=== PATIENT | male | born 1965 | race Caucasian/White ===

== ENCOUNTER 2017-10-09 15:17 | Inpatient (IN) | payer SELFPAY ==
[2017-10-09] MEDS ORDERED: Ondansetron HCl/PF 4 MG/2 ML Vial ONE (15:28)
[2017-10-09] MEDS ORDERED: Lorazepam 2 MG/ML VIAL ONE (15:51)
[2017-10-09] MEDS ORDERED: Morphine 4 MG/ML VIAL ONE (15:51)
[2017-10-09] MEDS ORDERED: Pantoprazole 40 MG VIAL ONE (15:52)
[2017-10-09 16:59] LABS: ALT (SGPT) 19 U/L (8-55); AST (SGOT) 26 U/L (5-34); Alkaline Phosphatase 85 U/L (40-150); Anion Gap 22 mmol/L (10-20); BUN (Urea Nitrogen) 12 mg/dL (8.4-25.7); Bilirubin, Total 1.1 mg/dL (0.2-1.2); Calc. Creatinine Clearance 0 mL/min (70-130); Calcium 9.4 mg/dL (7.8-10.44); Carbon Dioxide 21 mmol/L (22-29); Chloride 99 mmol/L (98-107); Estimated GFR-MDRD 86; Globulin 3.2 g/dL (2.4-3.5); Protein, Total 7.6 g/dL (6.0-8.3)
[2017-10-09 17:25] LABS: #Lymphocytes 0.8 thou/uL (1.20-3.40); #Monocytes 0.9 thou/uL (0.11-0.59); #Neutrophils 12.4 thou/uL (1.40-6.50); %Basophils 0.2 % (0.0-1.0); %Eosinophils 0.1 % (0.0-10.0); %Lymphocytes 5.5 % (21.0-51.0); Hematocrit 47.8 % (42.0-52.0); Mean Platelet Volume 6.8 fL (7.4-10.4); Red Blood Cell (RBC) Count 5.21 mill/uL (4.70-6.10); White Blood Cell (WBC) Count 14.1 thou/uL (4.8-10.8)
[2017-10-09 17:32] LABS: Prothrombin Time 14.2 SEC (12.0-14.7)
[2017-10-09 17:34] LABS: PTT 19.2 SEC (22.9-36.1)
[2017-10-09] MEDS ORDERED: Ondansetron HCl/PF 4 MG/2 ML Vial IVP PRN (17:36)
[2017-10-09] MEDS ORDERED: Acetaminophen 650 MG Suppository PR PRN (17:36)
[2017-10-09] MEDS ORDERED: Promethazine HCl 25 MG/ML VIAL IM/IV PRN (17:36)
[2017-10-09] MEDS ORDERED: Sodium Chloride 0.9% 1,000 ML IV SCH (17:45)
[2017-10-09] MEDS ORDERED: ISOVUE-370 76%-LOCM 1 ML ONE (17:47)
[2017-10-09] MEDS ORDERED: Iopamidol 370 76% 50 ML VIAL FS ONE (17:47)
[2017-10-09 18:15] LABS: Bilirubin Negative (Negative); Blood, Urine Negative (Negative); Glucose, Urine (Dipstick) Negative (Negative); Ketone, Urine 40 mg/dL (Negative); Nitrite Negative (Negative); Protein, Urine (Dipstick) 30 mg/dL (Neg-Trace); Urobilinogen 0.2 mg/dL (0.2-1.0)
--- NOTE | 2017-10-09 18:17 | RAD ---
RADIOGRAPH RIGHT SHOULDER THREE VIEWS: History: 52-year-old male with right shoulder pain. FINDINGS: The glenohumeral joint appears normal. No evidence of fracture. Mild to moderate DJD at AC joint. On one of the two frontal views, the distal tip of the clavicle is subluxed a half-bone width superiorly relative to the acromion. This appears to reduce on the other view. There is no significant widening of the AC joint space. IMPRESSION: 1. No fracture. 2. Grade II acromioclavicular joint sprain, of unknown age. POS: [facility]
[2017-10-09 18:18] LABS: Bacteria/HPF None Seen HPF (None Seen); Hyaline Casts/LPF 0-3 HYALINE CAST LPF (0-3 Hyaline); RBC/HPF 0-3 HPF (0-3); Squamous Epithelial None Seen HPF (0-3); WBC/HPF None Seen HPF (0-3)
[2017-10-09 18:24] LABS: Amphetamine Not Detected (NotDetected); Methadone Not Detected (NotDetected); Methamphetamine Not Detected (NotDetected)
--- NOTE | 2017-10-09 18:24 | CT ---
CT ABDOMEN WITH CONTRAST CT PELVIS WITH CONTRAST: DATE: 10-09-17 HISTORY: 52-year-old male with nausea, hematemesis, generalized abdominal pain. COMPARISON: None. TECHNIQUE: IV injection of iodinated contrast media: 100 ml Isovue 370 Oral contrast media: No administered FINDINGS: The patient refused to be scanned supine. The patient was scanned in left lateral decubitus position. The appendix, abdominal aorta, left kidney, adrenals, liver, pancreas, spleen, and urinary bladder a re normal. No small bowel dilatation. No acute colonic diverticulitis. No ascites or pneumoperitoneum . No pleural effusion. 2.5 cm right renal upper pole parenchymal cyst. No other renal abnormality. Th ere is an appearance of intramural gas at the gastric cardia. There circumferential mural thickening and edema of the distal esophagus. IMPRESSION: 1. There is apparently intramural gas in the proximal stomach. This may represent extension of Mallor y-Cortes tears. Consider possibility of increased risk for Boerhaave syndrome. 2. Esophagitis. LUIS ALFREDO Ogden POS: [facility]
[2017-10-09] MEDS ORDERED: Morphine 4 MG/ML VIAL SLOW IVP PRN (19:24)
[2017-10-09] MEDS ORDERED: Promethazine HCl 25 MG/ML VIAL IM PRN (19:59)
[2017-10-09] MEDS ORDERED: Morphine 2 MG/ML SYRINGE SLOW IVP PRN (20:02)
[2017-10-09] MEDS: Ondansetron HCl/PF 4 MG/2 ML Vial IVP SCH (20:23)
[2017-10-09] MEDS: Lactated Ringer's 1,000 ML IV SCH (20:24)
[2017-10-09] MEDS ORDERED: Ondansetron HCl/PF 4 MG/2 ML Vial IVP SCH (21:00)
[2017-10-09] MEDS: Pantoprazole 80 MG in Sodium Chloride 0.9% 100 ML IVPB SCH (21:16)
[2017-10-09] MEDS: Metoclopramide HCl 10 MG/2 ML VIAL IVP SCH (21:25)
--- NOTE | 2017-10-09 21:25 | CT ---
CT THORAX NONCONTRAST: DATE: 10-09-17 TIME: 7:38 p.m. HISTORY: 52-year-old male with chest pain due to nausea, emesis, and hematemesis. COMPARISON: None. FINDINGS: Images are somewhat degraded because of patient breathing motion. There is fluid mildly distended the lumen of the distal and mid esophagus. There is diffuse, circumferential mild mural thickening of th e esophagus. No organized fluid collection is identified in the mediastinum. There is no pneumomedias tinum, pneumothorax, airspace opacity of pulmonary edema. There is no pleural effusion. No cardiomega ly or pericardial effusion. No thoracic aortic aneurysm. No mediastinum lymphadenopathy. IMPRESSION: 1. Fluid mildly distending the lumen of the esophagus could either represent gastroesophageal reflux or vomiting, during the time of this scan. 2. Because of motion artifact, it is difficult to evaluate for periesophageal fat stranding/edema, bu t there is no organized mediastinal fluid collection or pneumomediastinum. 3. Mural thickening of the esophagus is evidence for esophagitis. LUIS ALFRDEO Ogden POS: [facility]
--- NOTE | 2017-10-09 21:39 | HP ---
REASON FOR ADMISSION: Intractable nausea and vomiting with likely Ivana- Cortes tear, hematemesis. HISTORY OF PRESENT ILLNESS: The patient gives history of drinking 6-7 beers yesterday evening. He states he was at a libertarian. He has been throwing up from yesterday. The last few times he threw up this afternoon, there was blood in it. He is not able to quantify the exact amount. He has been having severe abdominal pain, which is generalized. He is not able to lay down supine. He is in a lateral position and curled up here on the ER rlackey. No complaints of chest pain or palpitation. No complaints of shortness of breath. He has not had any prior peptic ulcers, but has history of GERD. The patient states he does not drink on a regular basis. He denies any substance abuse. PAST MEDICAL/SURGICAL HISTORY: GERD, right arm surgery. CURRENT MEDICATIONS: None. PERSONAL HISTORY: Does not abuse alcohol on a regular basis or drugs. No history of smoking. FAMILY HISTORY: His biological father of [place] at the age of 47 years. His mom is apparently healthy as far as he knows. REVIEW OF SYSTEMS: The following complete review of systems was negative, unless otherwise mentioned in the HPI or below: Constitutional: Weight loss or gain, ability to conduct usual activities. Skin: Rash, itching. Eyes: Double vision, pain. ENT/Mouth: Nose bleeding, neck stiffness, pain, tenderness. Cardiovascular: Palpitations, dyspnea on exertion, orthopnea. Respiratory: Shortness of breath, wheezing, cough, hemoptysis, fever or night sweats. Gastrointestinal: Poor appetite, abdominal pain, heartburn, nausea, vomiting, constipation, or diarrhea. Genitourinary: Urgency, frequency, dysuria, nocturia. Musculoskeletal: Pain, swelling. Neurologic/Psychiatric: Anxiety, depression. Allergy/Immunologic: Skin rash, bleeding tendency. PHYSICAL EXAMINATION: GENERAL: The patient is a 52-year-old male who is currently in moderate-to- severe distress from abdominal pain. VITAL SIGNS: Blood pressure 136/84, pulse 100 per minute, respiratory rate 20 per minute, temperature 97.8 degrees Fahrenheit, saturating 100% on room air. NECK: Supple. No elevated JVD. HEENT: Eyes, extraocular muscles intact. Pupils reacting to light. Oral cavity mucous membranes are dry. No exudates or congestion. CARDIOVASCULAR: S1, S2 heard, tachycardic. RESPIRATORY: Air entry 1+ bilateral. No rales or rhonchi. ABDOMEN: Soft. Patient has voluntary guarding of his belly. No rigidity. Bowel sounds are heard. EXTREMITIES: No peripheral edema or calf tenderness. VASCULAR: Peripheral pulses 1+ bilateral. No ischemic ulcerations or gangrene. CENTRAL NERVOUS SYSTEM: No gross focal deficits seen. Patient is lethargic, but responds to questions and is moving all 4 extremities. PSYCHIATRIC: The patient is a bit anxious at present. Otherwise, no hallucinations or delusions. LABORATORY AND X-RAY FINDINGS: CT abdomen and pelvis with contrast done showed intramural gas in the proximal stomach. This may represent extension of Ivana -Cortes tears. There is a possible risk of Boerhaave syndrome, esophagitis is seen, right shoulder 3 view x-ray done showed no fracture. Urine drug screen is positive for opiates. UA shows ketones. BUN 12, creatinine 0.9. Serum bicarbonate is 21. Otherwise, electrolytes within normal limits. Liver function tests are within normal limits. Albumin is 4. PT, INR, PTT within normal limits. White count of 14, H and H was 16 and 47, platelet count 274, MCV is 91 with 88% neutrophils. EKG done shows normal sinus rhythm at 90 beats per minute. CLINICAL IMPRESSION AND PLAN: Patient will be admitted to IMCU for intractable nausea and vomiting with Ivana-Cortes tears. This is for close monitoring to control his vomiting, so as to make sure he does not tear the entire stomach wall. He will be on Protonix drip along with Phenergan 25 mg IV q.6 hourly along with Zofran p.r.n., normal saline at 100 mL per hour. I have spoken to Dr. Gordon for Gastroenterology, and Dr. Nettles for General Surgery. We will closely monitor him in ICU. The plan is to stop his nausea, vomiting first. He is at high risk for perforation. PAUL
[2017-10-09 21:54] VITALS: BMI 26.9
[2017-10-09] MEDS: Ketorolac Tromethamine 30 MG/ML VIAL IVP SCH (23:27)
[2017-10-09] MEDS: Promethazine HCl 25 MG/ML VIAL IM/IV SCH (23:29)
[2017-10-09] MEDS: Acetaminophen 1,000 MG in Premix Bag 1 BAG IVPB SCH (23:33)
[2017-10-09] MEDS: Piperacillin/Tazobactam 4.5 GM in Sodium Chloride 0.9% 100 ML IVPB SCH (23:55)
[2017-10-09] MEDS ORDERED: Piperacillin/Tazobactam 4.5 GM in Sodium Chloride 0.9% 100 ML IVPB SCH (23:59)
[2017-10-10] MEDS: Ondansetron HCl/PF 4 MG/2 ML Vial IVP SCH ×3 (01:20→08:43)
--- NOTE | 2017-10-10 01:25 | CON ---
DATE OF CONSULTATION: 10/09/2017 REASON FOR CONSULTATION: "Ivana-Cortes tear." HISTORY OF PRESENT ILLNESS: Mr. Dominique is a 52-year-old gentleman who came to the emergency room to day for epigastric pain after quite a bit of vomiting. Apparently, he went to a republican last night for holidays and started throwing up after having a few beers last night and the vomiting would not stop . He has not had this problem before, although he has had significant reflux in the past. He estima chani he vomited 20-30 times through the night. Today, he had a little bit of emesis that was red and coffee ground, there were no overt clots. Ultimately, he called his sister who called EMS and he was brought here to the emergency room. Here, he has been afebrile. He had acute epigastric left upper quadrant pain. He had an O2 sat of 96%, blood pressure 155/101, pulse of 100, respirations 20. He has had no vomiting here, although he complains of significant epigastric pain and then was sent for CAT scan there. Apparently, he would not lie flat on the table and would only lie on his left side. His labs showed a white count of 14,000 at 1710 hours, hemoglobin was 16.4, platelet count 274. Com prehensive metabolic profile was normal. Urinalysis was notable for 40 ketones. Tox screen was posi tive for opiates, but he received morphine here. All other drug screen was negative and alcohol leve l was not obtained. The patient also complains of right shoulder pain. He states he is not nauseate d now. He denies any headache or visual changes. He does not recall falling or hitting his shoulder . When asked about abdominal pain whether it is like sore muscles from doing sit-ups or deeper insid e, he states it is deeper inside. PAST MEDICAL HISTORY: Reflux. PAST SURGICAL HISTORY: Right arm surgery. He has a tattoo on the right shoulder. ALLERGIES: None known. HOME MEDICATIONS: He states he takes Zantac 75 for reflux. FAMILY HISTORY: Noncontributory. PHYSICAL EXAMINATION: VITAL SIGNS: As above. GENERAL: The patient is in distress, lying on his left side, holds his upper abdomen, although he wi ll talk to me and give me history. He has an emesis bag at the bedside, but there is nothing in exce pt for dry spit. HEENT: Conjunctiva and sclerae are clear. Oropharynx is without lesions. NECK: Supple without adenopathy. There is no crepitus in the neck or upper chest. LUNGS: Clear. HEART: Regular rate and rhythm. ABDOMEN: Soft. There is some voluntary guarding in the upper abdomen. There is no rebound. There is no palpable hepatosplenomegaly. Bowel sounds are positive. EXTREMITIES: Reveal no clubbing, cyanosis, or edema. He has pain in his right shoulder, tenderness at the AC joint. He cannot abduct the arm completely above 90 degrees. LABORATORY STUDIES AND X-RAY FINDINGS: As above. Right shoulder film showed no fracture but a grade II AC joint sprain. CAT scan reviewed by me when I was called on the floor about this consultation, before it was read and it shows some distal esophageal thickening consistent with esophagitis, no fr ee air in the chest cavity, but definitely, air in the gastric wall along the lesser curve. There is no overt evidence of free perforation, but there is no contrast in this area, maybe some blood in th e gastric lumen. There is one picture on the coronals that raise concern for possible rupture of the proximal stomach, but again, no free air or fluid or inflammation seen outside the gastric lumen. ASSESSMENT: I agree with possible Boerhaave syndrome. There is no obvious evidence of free air, alt lori there is quite a bit of intramucosal area in the proximal stomach along the lesser curve and al so at the gastroesophageal junction region. There are no signs of hematemesis at this time. There is no anemia or signs of active gastrointestin al bleeding. RECOMMENDATIONS: With the degree of pain he has and leukocytosis, he was started on broad-spectrum a ntibiotics. He has had his nausea controlled with scheduled Phenergan and Zofran and he has a surgic al consultation and possibly even a Thoracic Surgery consultation. He needs to be in the ICU or IMU. I would also recommend IV Protonix drip. These issues were conveyed to the hospitalist and General Surgery but via phone call.
--- NOTE | 2017-10-10 02:06 | CON ---
DATE OF CONSULTATION: 10/09/2017 HISTORY OF PRESENT ILLNESS: I was called by Dr. Gordon to evaluate Mr. Dominique, who is a 52-year-old gentleman admitted with abdominal pain after binge drinking. He has had nausea and multiple episode s of vomiting and retching. He had a CT scan of his abdomen performed, which showed small amount of submucosal air in the cardia and greater curvature of the stomach and GE junction. CT of his chest s hows an edematous distal esophagus with no free fluid and no free air in either the mediastinum or in the left pleural cavity. He has been admitted. He is being hydrated and has been started on Zosyn. He has not been able to tolerate any oral contrast, so we do not really have a good swallow study o ther than the CT scan. Currently, he is asleep, resting comfortably. He has not been tachycardic. He is currently unwilling to be interviewed for another time by me, as he has been interviewed by [facility] physicians up to this point. PAST MEDICAL HISTORY: None. PAST SURGICAL HISTORY: None. CURRENT MEDICATIONS: Noted. ALLERGIES: None. SOCIAL HISTORY: He drinks occasionally, but had a binge drinking episode at a [employer] last n ight leading to his vomiting. He does not use tobacco. REVIEW OF SYSTEMS: Not performed, but is negative in the ER physician's note. PHYSICAL EXAMINATION: CHEST: Clear bilaterally. HEART: Rhythm is regular with the rate in the 80s. Blood pressure is 128/72. ABDOMEN: Soft. Minimally tender in the epigastrium. He has no rebound, guarding, or other peritone al signs. LABORATORY DATA: Of note, his white blood cell count is 14.1, hemoglobin is 16.4, platelet count is 274,000. Potassium is 4.7, creatinine is 0.92. ASSESSMENT AND PLAN: Probably Larrbyv-Tosoz-jbmf situation with a submucosal tear at the GE junction due to retching. There is no free fluid in either the abdomen or chest. There is submucosal edema and air in the distal esophagus and cardia of the stomach. I have recommended that he remain n.p.o., have no NG tubes passed. He has been started on Zosyn and is being hydrated. We will re-scan niranjanelda rameshly with oral contrast in 48 hours.
[2017-10-10] MEDS: Lactated Ringer's 1,000 ML IV SCH ×3 (02:12→15:00)
[2017-10-10 04:31] LABS: #Eosinphils 0.1 thou/uL (0.0-0.7); #Lymphocytes 2.1 thou/uL (1.20-3.40); #Monocytes 1.1 thou/uL (0.11-0.59); #Neutrophils 8.2 thou/uL (1.40-6.50); %Basophils 0.1 % (0.0-1.0); %Eosinophils 1.1 % (0.0-10.0); %Lymphocytes 18.3 % (21.0-51.0); %Monocytes 9.4 % (0.0-10.0); Hematocrit 44.1 % (42.0-52.0); Mean Platelet Volume 6.9 fL (7.4-10.4); Red Blood Cell (RBC) Count 4.78 mill/uL (4.70-6.10); White Blood Cell (WBC) Count 11.5 thou/uL (4.8-10.8)
[2017-10-10 04:46] LABS: ALT (SGPT) 15 U/L (8-55); AST (SGOT) 21 U/L (5-34); Alkaline Phosphatase 68 U/L (40-150); Anion Gap 12 mmol/L (10-20); BUN (Urea Nitrogen) 16 mg/dL (8.4-25.7); Bilirubin, Total 1.5 mg/dL (0.2-1.2); Calc. Creatinine Clearance 103 mL/min (70-130); Calcium 8.6 mg/dL (7.8-10.44); Carbon Dioxide 24 mmol/L (22-29); Chloride 103 mmol/L (98-107); Estimated GFR-MDRD 79; Globulin 2.5 g/dL (2.4-3.5); Protein, Total 6.1 g/dL (6.0-8.3)
--- NOTE | 2017-10-10 06:01 | CON ---
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 He does not drink that often. he began experiencing retchin g intractably and presents to the emergency room today and evaluated appreciated to have a white coun t of 14,000, hemoglobin of 16. Sodium 137, potassium 4.1, BUN 12, creatinine 0.92. CAT scan of the abdomen and pelvis obtained on 04:02 p.m. reveals intramural gas in the proximal stomach consistent w ith probable Ivana-Cortes tears, but there was no extraluminal fluid or inflammatory changes. There was some thickening of the lower esophagus, but no extraluminal fluid. Chest CAT scan subsequently ordered by Dr. Gordon does not reveal any acute findings per my read, but I am waiting the final radi ology read. ALLERGIES: None. TOBACCO: None. ALCOHOL: Rarely. MEDICATIONS: None routinely. PAST SURGICAL HISTORY: Arm surgery. PAST MEDICAL HISTORY: Noncontributory. REVIEW OF SYSTEMS: Ten-point noncontributory. SOCIAL HISTORY: Patient is single. He is . PHYSICAL EXAMINATION: VITAL SIGNS: BP 144/72, respiratory rate 20, heart rate 86. GENERAL: Patient prefers lying in the left lateral decubitus position. He is uncomfortable, complai debi of epigastric pain. LUNGS: Clear to auscultation. CARDIAC: Regular rate and rhythm without murmur or gallop. ABDOMEN: Nondistended, soft lower abdomen with a few bowel sounds more tender in upper abdomen with guarding. EXTREMITIES: Unremarkable. LABORATORY DATA: As noted above. Basic metabolic profile and CMP essentially normal. White count 1 4, hemoglobin 16. Coagulation studies negative. Toxicology negative. ASSESSMENT AND PLAN: Intractable retching and dehydration. He has been hydrated. Would agree with current plans for hospitalization observation in the immediate care unit, n.p.o., and aggressive cont rol of any nausea to prevent further retching and further injury on intravenous antibiotics and PPIs. We will follow him in clinic. Repeat blood counts tomorrow. Obtain a chest x-ray tomorrow, uprigh t, portable and observe him closely n.p.o.
[2017-10-10] MEDS: Acetaminophen 1,000 MG in Premix Bag 1 BAG IVPB SCH (06:03)
[2017-10-10] MEDS: Ketorolac Tromethamine 30 MG/ML VIAL IVP SCH ×3 (06:05→17:17)
[2017-10-10] MEDS: Metoclopramide HCl 10 MG/2 ML VIAL IVP SCH (06:07)
[2017-10-10] MEDS: Promethazine HCl 25 MG/ML VIAL IM/IV SCH (06:08)
[2017-10-10] MEDS: Pantoprazole 80 MG in Sodium Chloride 0.9% 100 ML IVPB SCH ×2 (06:50→17:23)
--- NOTE | 2017-10-10 07:39 | RAD ---
CHEST 1 VIEW: HISTORY: Followup epigastric pain. COMPARISON: None. FINDINGS: Portable upright 1 view chest demonstrates a normal cardiac silhouette. The pulmonary vessels and hi lum are normal. Costophrenic angles are clear. No mass. No consolidation. No pneumothorax or osse ous abnormalities. IMPRESSION: No acute cardiopulmonary process. POS: [facility]
[2017-10-10] MEDS: Piperacillin/Tazobactam 4.5 GM in Sodium Chloride 0.9% 100 ML IVPB SCH ×2 (08:41→17:20)
[2017-10-10] MEDS ORDERED: Ondansetron HCl/PF 4 MG/2 ML Vial IVP PRN (10:30)
[2017-10-10] MEDS ORDERED: Acetaminophen 1,000 MG in Premix Bag 1 BAG IVPB PRN (11:21)
--- NOTE | 2017-10-10 12:10 | PRG ---
DATE OF SERVICE: 10/10/2017 SUBJECTIVE: Mr. Dominique is doing well in immediate care. Temperature 98.1 degrees, pulse 77, respir atory rate 19, blood pressure 110/60. His pain in abdomen has resolved. He feels much better. He i s no longer having nausea. LABORATORY DATA: White count 11.5, hemoglobin 14. Basic metabolic profile normal. Bilirubin slight ly elevated at 1.5. Chest x-ray this morning is unremarkable. OBJECTIVE: LUNGS: Clear to auscultation. CARDIAC: Regular rate and rhythm without murmur or gallop. ABDOMEN: Soft and nontender. ASSESSMENT AND PLAN: Ivana-Cortes tear from binge alcohol; nausea; abdominal pain, resolved. White count normalizing. Chest x-ray normal. We would plan to keep n.p.o. today and keep hydrated. We w ould decrease IV fluids to 100 per hour. We would mobilize him up in a chair and ambulating today. Continue his Protonix and antibiotics. Change his Zofran to p.r.n. Anticipate contrast swallow stud y tomorrow to evaluate esophagus and stomach and then begin liquids tomorrow if he continues present course.
--- NOTE | 2017-10-10 13:09 | PDOC.PN ---
- Subjective Encounter Start Date: 10/10/17 Encounter Start Time: 12:00 Subjective: no abd pain this morning -: no nausea or vomiting now -: feels better - Objective MAR Reviewed: Yes Vital Signs & Weight: Vital Signs (12 hours) Temp Pulse Resp BP Pulse Ox 10/10/17 11:28 98.1 F 78 20 98/61 100 10/10/17 07:57 98.1 F 77 19 99 10/10/17 07:00 98.1 F 77 19 110/60 99 10/10/17 06:10 69 18 101/64 99 10/10/17 04:09 97.9 F 75 16 119/76 99 10/10/17 02:11 87 20 121/75 99 Weight Weight 183 lb 7 oz I&O: 10/09/17 10/10/17 10/11/17 06:59 06:59 06:59 Intake Total 2050 Output Total 800 Balance 1250 Result Diagrams: 10/10/17 03:57 10/10/17 03:57 Phys Exam - Physical Examination HEENT: PERRLA, moist MMs Neck: no JVD, supple Respiratory: no wheezing, no rales rhonchi+ Cardiovascular: RRR, no significant murmur Gastrointestinal: soft, non-tender, no distention, positive bowel sounds Musculoskeletal: no edema, pulses present Neurological: non-focal, moves all 4 limbs Psychiatric: A&O x 3 Dx/Plan (1) Intractable nausea and vomiting Code(s): R11.2 - NAUSEA WITH VOMITING, UNSPECIFIED Status: Acute Comment: resolving (2) Ivana-Cortes tear Code(s): K22.6 - GASTRO-ESOPHAGEAL LACERATION-HEMORRHAGE SYNDROME Status: Acute (3) Abdominal pain Code(s): R10.9 - UNSPECIFIED ABDOMINAL PAIN Status: Resolved Qualifiers: Abdominal location: generalized Qualified Code(s): R10.84 - Generalized abdominal pain - Plan is npo -: on protonix drip -: nausea has resolved now -: phenergan prn -: empiric zosyn, for ba swallow/gastrograffin in am if stable * . Review of Systems - Medications/Allergies Allergies/Adverse Reactions: Allergies Allergy/AdvReac Type Severity Reaction Status Date / Time No Known Allergies Allergy Verified 10/09/17 22:06 Medications: Current Medications Pantoprazole Sodium 80 mg/ (Sodium Chloride) 100 mls @ 10 mls/hr IVPB INF COUNT INCLUDES THE [facility] Last Admin: 10/10/17 06:50 Dose: 100 mls Lactated Ringer's (Lactated Ringer's) 1,000 mls @ 100 mls/hr IV .Q10H COUNT INCLUDES THE [facility] Last Admin: 10/10/17 06:09 Dose: 1,000 mls Piperacillin Sod/Tazobactam (Sod 4.5 gm/ Sodium Chloride) 100 mls @ 200 mls/hr IVPB 0800,1600,2359 COUNT INCLUDES THE [facility] Last Admin: 10/10/17 08:41 Dose: 100 mls Acetaminophen 1,000 mg/ Device 100 mls @ 400 mls/hr IVPB Q6H PRN PRN Reason: Fever/Mild Pain Stop: 10/11/17 11:22 Ketorolac Tromethamine (Toradol) 30 mg IVP Q6HR COUNT INCLUDES THE [facility] Stop: 10/14/17 23:59 Last Admin: 10/10/17 12:20 Dose: 30 mg Morphine Sulfate (Morphine) 2 mg SLOW IVP Q2H PRN PRN Reason: Chest Pain/BP Elevations Last Admin: 10/09/17 20:27 Dose: 2 mg Ondansetron HCl (Zofran) 4 mg IVP Q4H PRN PRN Reason: Nausea/Vomiting Promethazine HCl (Phenergan) 25 mg IM Q4H PRN PRN Reason: Nausea/Vomiting Sodium Chloride (Flush - Normal Saline) 10 ml IVF Q12HR COUNT INCLUDES THE [facility] Last Admin: 10/10/17 08:44 Dose: 10 ml Sodium Chloride (Flush - Normal Saline) 10 ml IVF PRN PRN PRN Reason: Saline Flush
[2017-10-11] MEDS: Ketorolac Tromethamine 30 MG/ML VIAL IVP SCH ×3 (00:09→12:39)
[2017-10-11] MEDS: Piperacillin/Tazobactam 4.5 GM in Sodium Chloride 0.9% 100 ML IVPB SCH ×2 (00:11→08:37)
[2017-10-11] MEDS: Pantoprazole 80 MG in Sodium Chloride 0.9% 100 ML IVPB SCH (04:20)
[2017-10-11] MEDS: Lactated Ringer's 1,000 ML IV SCH (04:21)
[2017-10-11 04:43] LABS: #Eosinphils 0.4 thou/uL (0.0-0.7); #Lymphocytes 1.5 thou/uL (1.20-3.40); #Monocytes 0.5 thou/uL (0.11-0.59); #Neutrophils 4.8 thou/uL (1.40-6.50); %Basophils 0.1 % (0.0-1.0); %Lymphocytes 21.3 % (21.0-51.0); Hematocrit 40.5 % (42.0-52.0); Mean Platelet Volume 7.2 fL (7.4-10.4); Red Blood Cell (RBC) Count 4.32 mill/uL (4.70-6.10); White Blood Cell (WBC) Count 7.2 thou/uL (4.8-10.8)
[2017-10-11 04:51] LABS: Anion Gap 10 mmol/L (10-20); BUN (Urea Nitrogen) 18 mg/dL (8.4-25.7); Calc. Creatinine Clearance 90 mL/min (70-130); Calcium 8.2 mg/dL (7.8-10.44); Carbon Dioxide 26 mmol/L (22-29); Chloride 107 mmol/L (98-107); Estimated GFR-MDRD 68
--- NOTE | 2017-10-11 09:01 | PRG ---
DATE OF SERVICE: 10/10/2017 Mr. Dominique is feeling better. His pain has resolved. He has no nausea or vomiting. He remains in the IMU. PHYSICAL EXAMINATION: VITAL SIGNS: Temperature is 98, pulse 68, blood pressure 100/59. ABDOMEN: Soft and nontender with no rebound or guarding. LABORATORY STUDIES: White count 11.5, hemoglobin 14, platelet count 241. Sodium 135, potassium 4, B UN 16, creatinine 0.99. Electrolytes are normal. ASSESSMENT: Partial boerhaave in upper stomach with no free perforation managed conservatively with antibiotics, n.p.o. status, IV fluids and antiemetics. PLAN: In talking with General Surgery would be to perform an upper GI probably tomorrow and if there are no signs of leak to start diet.
--- NOTE | 2017-10-11 10:17 | CT ---
CHEST AND ABDOMEN AND PELVIC CT WITH CONTRAST: Date: 10/11/17 HISTORY: GE junction mucosal tear. COMPARISON: 10/09/17. TECHNIQUE: Chest, abdomen, and pelvic CT are performed with IV contrast. Enteric contrast was also administered. Coronal reformatted images are submitted for interpretation. FINDINGS: CHEST CT: Heart size within normal limits. No pericardial effusion. The thoracic aorta and abdominal aorta have a normal caliber. No periaortic fat stranding. No mediastinal mass, lymphadenopathy, or hematoma. There is mucosal thickening involving the distal t horacic esophagus. Tiny pockets of air attenuation are presumed to be intraluminal. There is no evide nce of extraluminal air or intramural air. Small bilateral pleural effusions with adjacent consolidation due to atelectasis or pneumonia. Bibasi lar opacities have developed since the previous examination. There is no pneumothorax. Trachea and ce ntral bronchi are patent. Minimal ground-glass opacities involving the posterior segment of the right upper lobe. ABDOMEN CT: Intra and extrahepatic portal vein is patent. Liver, spleen, pancreas, and adrenal glands have approp riate enhancement. Gallbladder is unremarkable. Symmetric enhancement of the kidneys. Bilaterally, no obstructive uropathy. Hypodensity emanating fro m the upper pole of the right kidney, measuring 2.3 x 1.6 cm is compatible with a cyst. No gastrohepatic, retrocrural, or periportal lymphadenopathy. No mesenteric mass, lymphadenopathy, fr ee air, or free fluid. Minimal intramural air involving the gastric cardia. Additional intramural air is not appreciated in the stomach. Multiple normal caliber small bowel loops. Ileocecal junction is normal. Normal caliber appendix. Contrast and fecal material opacify a normal caliber colon. PELVIC CT: No mass, lymphadenopathy, free air, or free fluid. Contrast opacifies the urinary bladder. Small left inguinal hernia containing mesenteric fat. No lytic or blastic lesions in the osseous structures. IMPRESSION: 1. Interval development of small bilateral effusions with adjacent consolidation likely due to atele ctasis. 2. Persistent mucosal edema involving the distal thoracic esophagus. Currently, there does not appea r to be any significant fluid attenuation in the distal thoracic esophagus. Small pockets of air atte nuation noted in the GE junction may be intraluminal. 3. Decreased intramural air in the gastric cardia. 4. No evidence of obstruction. POS: [facility]
--- NOTE | 2017-10-11 11:44 | PRG ---
DATE OF SERVICE: 10/11/2017 Mj Dominique is doing well today. He denies any abdominal pain. His CAT scan reveals some intramur al gas in his lower esophagus and some swelling, otherwise unremarkable. There is no evidence of a l eak. Hemodynamically stable. His labs are normal. LUNGS: Clear to auscultation. CARDIAC: Regular rate and rhythm without murmur or gallop. ABDOMEN: Soft, nontender. I have discussed these findings with Dr. Boubacar Ibarra and we are in agreement that the patient shoul d progress his diet slowly, beginning on full liquids today and advance to soft diet over the next 2- 3 days. He should avoid hard to swallow items such as bread, meats and salads for the next several d ays. After several days of tolerating a soft slowly progressive diet he can resume regular food. He should follow up with me in 2 weeks. He should avoid alcohol. He should take a PPI every day. I h fran changed him from Zosyn to Augmentin p.o. elixir. If he can swallow pills PPI. In my opinion and I have discussed with Dr. Boubacar Ibarra who was in agreement patient can be discharged home later to day on this dietary progression routine.
[2017-10-11 15:53] VITALS: BP 107/75; TEMP 98.7
[2017-10-11] MEDS ORDERED: Amoxicillin/Potassium Clav 600 mg/5 ml Oral Suspension PO SCH (21:00)
--- NOTE | 2017-10-12 01:46 | DIS ---
DATE OF ADMISSION: 10/09/2017 DATE OF DISCHARGE: 10/11/2017 DISCHARGE DIAGNOSES: 1. Intractable nausea and vomiting, resolved. 2. Ivana-Cortes tear, secondarily to intractable nausea and vomiting. 3. Alcohol abuse. 4. Leukocytosis with neutrophilia, resolved. CONSULTATIONS: Dr. Gordon with GI service. Dr. Nettles with General Surgery Service. Dr. Boubacar del valle with Thoracic Surgery Service. PERTINENT LABORATORY AND X-RAY FINDINGS: Complete metabolic profile is within normal limits. CBC sh owed a white blood cell count ranging between 7.2-14.1. Neutrophils ranged between 66.5%-88.2%. [facility] ne drug screen dated 10/09/[address] of the abdomen and pelvis dated 10/09/2017 showed intramural gas in the proximal stomach, likely representing Ivana-Cortes tears. Esophagitis noted. CT of the chest dated 10/09/2017 showed mildly distending fluid in the lumen of the esophagus . Mural thickening of the esophagus consistent with esophagitis. CT of the abdomen and pelvis dated 10/11/2017 showed persistent mucosal edema involving the distal thoracic esophagus, small bilateral pleural effusions with adjacent atelectasis. Decreased intramural air in the gastric cardia. No carson dence of obstruction. HOSPITAL COURSE: The patient was initially admitted after presenting with intractable nausea, vomiti ng with CT imaging of the abdomen and pelvis showing evidence of intramural gas concerning for Mallor y-Cortes tears or potential distal esophageal leak. The patient underwent evaluation by the GI servic e as well as Thoracic Surgery with conservative management including IV fluids limiting p.o. intake, pain control, and antiemetics. The patient was not deemed a surgical candidate and was being prepped for EGD, however, on 10/11/2017, decided to leave against medical advice.
== END 2017-10-11 16:28 | disposition left against medical advice (07) | DRG 370 ==
LOC: ERS 15:17 → IMCU/EMU 19:46
PROVIDERS: ADMIT Internal Medicine; ATTEND Internal Medicine
DX: K22.6 Gastro-esophageal laceration-hemorrhage syndrome (principal); D72.0 Genetic anomalies of leukocytes; D72.829 Elevated white blood cell count, unspecified; F10.10 Alcohol abuse, uncomplicated; K22.3 Perforation of esophagus; K20.9 Esophagitis, unspecified; E86.0 Dehydration
CPT/HCPCS: 36415; 71010; 71250; 71260; 74177; 80048; 80053; 80306; 81003; 81015; 85025; 85610; 85730; 86850; 86900; 86901; 96361; 96374; 96375; C9113; J1885; J2060; J2270; J2405; J2543; J2765; J7050